=== PATIENT | female | born 1935 | race Two or more races ===

== ENCOUNTER 2017-03-14 13:22 | Inpatient (IN) | payer OTHER, MEDICARE ==
[~2017-03-14] VITALS: Ht 157.5 cm; Wt 63.5 kg
[2017-03-14 13:24] VITALS: BP 138/67
--- NOTE | 2017-03-14 13:30 | NUR ---
[facility] TO ER AFTER A GLF. C/O SEVERE RIGHT SHOULDER PAIN. NO KO. PT AAO. PLACED ON MONITOR. IV LINE STARTED. SEEN AND EXMAINED BY . AWAITING FOR ORDER
[2017-03-14] MEDS ORDERED: MORPHINE SULFATE INJ 2 MG/ML DISP.SYRIN ONE (13:34)
[2017-03-14] MEDS ORDERED: MORPHINE SULFATE INJ 4 MG/ML DISP.SYRIN ONE (13:34)
[2017-03-14] MEDS ORDERED: ONDANSETRON 4 MG TAB.RAPDIS ONE (13:34)
--- NOTE | 2017-03-14 13:43 | NUR ---
PAIN MEDICATION GIVEN ORDERED BY JOAQUÍN CHEEK
[2017-03-14] MEDS ORDERED: ONDANSETRON 4 MG TAB.RAPDIS SL ONE (14:00)
[2017-03-14] MEDS ORDERED: MORPHINE SULFATE INJ 2 MG/ML DISP.SYRIN IM ONE (14:00)
[2017-03-14] MEDS ORDERED: HYDROMORPHONE 1 MG/1 ML DISP.SYRIN ONE ×2 (14:02→14:52)
--- NOTE | 2017-03-14 14:17 | NUR ---
GINA ARVIZU, LIZZ MIGUEL DIRECT SUPPORT SPECIALIST
[2017-03-14 14:18] LABS: BASOPHILS # (AUTO) 0.1 /CMM (0.0-0.2); BASOPHILS % (AUTO) 0.8 % (0.0-2.0); EOSINOPHILS % (AUTO) 0.4 % (0.0-6.0); HEMATOCRIT 35 % (33-45); HEMOGLOBIN 12.1 g/dL (11.5-14.8); LYMPHOCYTES # (AUTO) 2.7 /CMM (0.8-4.8); LYMPHOCYTES % (AUTO) 25.4 % (20.0-44.0); MEAN CORPUSCULAR HEMOGLOBIN 30 PG (26.0-33.0); MEAN CORPUSCULAR HGB CONC 34 g/dl (31.0-36.0); MEAN CORPUSCULAR VOLUME 87 fL (82-100); MONOCYTES # (AUTO) 0.7 /CMM (0.1-1.30); MONOCYTES % (AUTO) 6.9 % (2.0-12.0); NEUTROPHILS % (AUTO) 66.5 % (43.0-81.0); PLATELET COUNT (AUTO) 204 /CMM (150-450); RDW COEFFICIENT OF VARIATION 13.1 (11.5-15.0); RED BLOOD CELL COUNT(AUTO) 4.07 MIL/uL (4.0-5.2); WHITE BLOOD COUNT (AUTO) 10.5 K/uL (4.3-11.0)
--- NOTE | 2017-03-14 14:19 | NUR ---
CALLED NURSING SUP. FOR TELE BED
[2017-03-14 14:29] LABS: CARBON DIOXIDE 27 mmol/L (21-32); CHLORIDE 105 mmol/L (98-107); CREATININE 0.9 mg/dL (0.6-1.3); GLUCOSE 143 mg/dL (74-106); POTASSIUM 3.9 mmol/L (3.5-5.1); SODIUM SERUM 139 mmol/L (136-145); UREA NITROGEN, BLOOD 24 mg/dL (7-18)
[2017-03-14] MEDS ORDERED: HYDROMORPHONE 1 MG/1 ML DISP.SYRIN IV ONE ×2 (14:30→15:00)
[2017-03-14 14:33] LABS: INR 1.6 (0.87-1.13); PROTHROMBIN TIME 17.1 SECS (9.5-12.7)
--- NOTE | 2017-03-14 14:54 | NUR ---
REPORT GIVEN TO GRADY ALATORRE FOR TELE ROOM [phone]
--- NOTE | 2017-03-14 14:55 | NUR ---
[facility] CALLED, THEY SAID LIZZ (JOSE) IS IN SURGERY AND WILL CALL BACK WHEN HE IS OUT
[2017-03-14] MEDS ORDERED: OLME20TA15 PO (15:02)
[2017-03-14] MEDS ORDERED: FAMO-131 PO (15:02)
[2017-03-14] MEDS ORDERED: LEVO100T9 PO (15:02)
[2017-03-14] MEDS ORDERED: GEMF600T PO (15:02)
[2017-03-14] MEDS ORDERED: ROSU20TA PO (15:02)
[2017-03-14] MEDS ORDERED: DIGO125T PO (15:02)
[2017-03-14] MEDS ORDERED: ISOS30TA6 PO (15:02)
[2017-03-14] MEDS ORDERED: WARF5TAB77 PO (15:02)
[2017-03-14] MEDS ORDERED: CLOP75TA2 PO (15:02)
--- NOTE | 2017-03-14 15:17 | NUR ---
NANCY PAGED, DR. LIZET Johnson ROVING CARRIER
[2017-03-14 15:52] LABS: THYROID STIMULATING HORMONE 5.455 uIU/mL (0.358-3.74)
[2017-03-14] MEDS ORDERED: TDAP [DIPH/PERTUSSIS/TET] 0.5 ML VIAL IM ONE ×2 (15:56→16:00)
--- NOTE | 2017-03-14 16:05 | NUR ---
ECHO DONE AT BS.
--- NOTE | 2017-03-14 16:45 | NUR ---
CUSTOMER EXPERIENCE PROFESSIONAL NOTES PATIENT ADMITTED FROM ER ON A GURNEY, NO APPARENT DISTRESS NOTED, NO SOB, COMPLAINING OF PAIN ON HER RIGHT SHOULDER. PATIENT ON TELE MONITOR A FIB HR 75, ON 2L O2 VIA NC. PATIENT HAS FAMILY AT BED SIDE. AWAITING ADMISSION ORDERS FROM DR HINDS. BP 135/90, HR 75, TEMP 97.1 97% ON 2L.
[2017-03-14] MEDS ORDERED: IV NS 0.9% 1,000 ML IV PRN (17:15)
[2017-03-14] MEDS ORDERED: HYDROCODONE/APAP 10/325MG 1 EA TABLET PO PRN (17:30)
[2017-03-14] MEDS ORDERED: Z GUARD REMEDY 2 OZ OINT TP PRN (17:30)
[2017-03-14] MEDS ORDERED: HYDROMORPHONE 1 MG/1 ML DISP.SYRIN IV PRN (17:30)
[2017-03-14] MEDS ORDERED: MAGNESIUM HYDROXIDE 30 ML UDC PO PRN (17:30)
[2017-03-14] MEDS ORDERED: ZOLPIDEM TARTRATE 5 MG TABLET PO PRN (17:30)
[2017-03-14] MEDS ORDERED: ACETAMINOPHEN 325 MG TABLET PO PRN (17:30)
[2017-03-14] MEDS ORDERED: MAG HYDROX/AL HYDROX/SIMETH 30 ML UDC PO PRN (17:30)
[2017-03-14] MEDS ORDERED: HYDROCODONE/APAP 5/325MG 1 EACH TABLET PO PRN (17:30)
[2017-03-14] MEDS ORDERED: ONDANSETRON HCL/PF 4 MG/2 ML VIAL IVP PRN (17:30)
--- NOTE | 2017-03-14 18:00 | NUR ---
DINKEY OPERATOR SLATE NOTES FAMILY STATED THAT THEY WOULD PREFER TO GO AMA, AND TRANSFER PATIENT TO ANOTHER HOSPITAL. NEETU AND DOMINIK SPOKE WITH FAMILY, INFORMED THEM OF RISKS AND BENEFITS. FAMILY STILL DECIDED TO GO AMA, DR HINDS AWARE. PAIN MEDICATIONS GIVEN, KEPT COMFORTABLE, ALL NEEDS ATTENDED TO. ORTHO INFORMED BY NEETU CUEVAS. DAUGHTER KAROLINA SIGNED AMA PAPERS.
--- NOTE | 2017-03-14 19:20 | NUR ---
NURSE OUTREACH CASE MANAGER CLOSING PATIENT LEFT IN A WHEEL CHAIR, VIA PRIVATE CAR, ACCOMPANIED BY HER DAUGHTER KAROLINA. AMA PAPERS SIGNED BY KAROLINA, PATIENT ACCEPTED EDUCATIONAL MATERIALS. INSTRUCTED PATIENT TO FOLLOW UP WITH PRIMARY CARE DOCTOR, VERBALIZED UNDERSTANDING. Addendum: 03/14/17 at 1936 by GRADY MANTILLA RN PATIENT REFUSED TO PUT ON THE ARM SLING FOR HER RIGHT ARM.
[2017-03-14] MEDS ORDERED: ATORVASTATIN 40 MG TABLET PO SCH (22:00)
[2017-03-15] MEDS ORDERED: PANTOPRAZOLE 40 MG TABLET.DR PO SCH (07:30)
[2017-03-15] MEDS ORDERED: LEVOTHYROXINE SODIUM 100 MCG TABLET PO SCH (09:00)
[2017-03-15] MEDS ORDERED: GEMFIBROZIL 600 MG TABLET PO SCH (09:00)
[2017-03-15] MEDS ORDERED: CLOPIDOGREL BISULFATE 75 MG TABLET PO SCH (09:00)
[2017-03-15] MEDS ORDERED: DIGOXIN 0.125 MG TABLET PO SCH (09:00)
[2017-03-15] MEDS ORDERED: ISOSORBIDE MONONITRATE (30MG) 30 MG TAB.SR.24H PO SCH (09:00)
== END 2017-03-14 19:20 | disposition left against medical advice (07) | DRG 342 ==
LOC: ER 13:23 → TELE 16:49
DX: S42.211A Unspecified displaced fracture of surgical neck of right humerus, initial encounter for closed fracture (principal); E55.9 Vitamin D deficiency, unspecified; I48.91 Unspecified atrial fibrillation; E03.9 Hypothyroidism, unspecified; W18.30XA Fall on same level, unspecified, initial encounter; Y93.9 Activity, unspecified; Y92.009 Unspecified place in unspecified non-institutional (private) residence as the place of occurrence of the external cause; Y99.9 Unspecified external cause status; E78.5 Hyperlipidemia, unspecified; I25.10 Atherosclerotic heart disease of native coronary artery without angina pectoris; M85.80 Other specified disorders of bone density and structure, unspecified site; Z79.01 Long term (current) use of anticoagulants; Z98.61 Coronary angioplasty status; R79.89 Other specified abnormal findings of blood chemistry
CPT/HCPCS: 36415; 70450-TC; 71010-TC; 73020; 80048-TC; 82306; 84439-TC; 84443-TC; 85025-TC; 85730-TC; 87081-TC; 90715; 93307-TC; A4606; J1170; J2270; Q0162; Z7610